=== PATIENT | female | born 1955 | race Caucasian/White ===

== ENCOUNTER 2021-12-23 09:09 | Inpatient (IN) | payer OTHER ==
[~2021-12-23] VITALS: Ht 154.9 cm; Wt 63.5 kg
[2021-12-23 10:43] LABS: BG BASE EXCESS -1.3 mmol/L (-2.0-2.0); BG CARBOXYHEMOGLOBIN 0.5 % (0.5-1.5); BG DEOXYHEMOGLOBIN 2.5 % (0.0-5.0); BG FRACTION INSPIRED OXYGEN 3; BG METHEMOGLOBIN 0.3 % (0.0-1.5); BG OXYGEN SATURATION 97.5 % (92.0-98.5); BG OXYHEMOGLOBIN 96.7 % (94.0-97.0); BG PCO2 36.5 mmHg (35.0-45.0); BG PH 7.417 (7.350-7.450); BG PO2 107.9 mmHg (75.0-100.0); BG SAMPLE SITE LEFT RADIAL; BG TOTAL HEMOGLOBIN 9.1 g/dL (12.0-18.0); BG VENT MODE NASAL CANNULA
[2021-12-23 11:24] LABS: BASOPHILS % 1.2 % (0.0-2.0); EOSINOPHILS % 0.5 % (0.0-5.0); HEMATOCRIT. 25.5 % (36.0-48.0); LYMPHOCYTES % 11.6 % (20.0-50.0); MEAN CORPUSCULAR HEMOGLOBIN 28.1 pg (28.0-32.0); MEAN CORPUSCULAR VOLUME 89.8 fL (81.0-99.0); MEAN PLATELET VOLUME 9.3 fl (7.4-10.4); MONOCYTES % 5.1 % (2.0-8.0); NEUTROPHILS % 81.6 % (40.0-76.0); PLATELET 280 x1000/uL (130-400); RED BLOOD CELL COUNT 2.84 mill/uL (4.2-5.4); RED CELL DISTRIBUTION WIDTH 18.6 % (11.6-14.6)
[2021-12-23 11:43] LABS: CLARITY URINE CLEAR (CLEAR); COLOR URINE YELLOW (YELLOW); KETONES URINE NEGATIVE (NEGATIVE); LEUKOCYTE ESTERASE URINE 3+ (NEGATIVE); NITRITE URINE NEGATIVE (NEGATIVE); OCCULT BLOOD URINE TRACE (NEGATIVE); PROTEIN URINE 2+ (NEGATIVE); SPECIFIC GRAVITY URINE 1.011 (1.005-1.030); UROBILINOGEN URINE 0.2 E.U./dL (0.2-1.0)
[2021-12-23 11:48] LABS: CHLORIDE 106 mEq/L (98-107)
[2021-12-23 11:51] LABS: PROTHROMBIN TIME 11.2 sec (9.6-11.0)
[2021-12-23 20:45] VITALS: BP 152/82
[2021-12-23] MEDS ORDERED: CLONIDINE 0.1MG TABLET PO PRN (23:15)
[2021-12-23] MEDS ORDERED: ACETAMINOPHEN 325MG TABLET PO PRN (23:15)
[2021-12-23] MEDS ORDERED: HYDROCODONE/ACETAMINOPHEN 5/325MG TABLET PO PRN (23:15)
[2021-12-23] MEDS ORDERED: DEXTROSE 50% WATER 50ML SYRINGE IV PRN (23:15)
[2021-12-23] MEDS ORDERED: IPRATROPIUM/ALBUTEROL 0.5-3(2.5)MG/3ML NEB HHN PRN (23:15)
[2021-12-23] MEDS ORDERED: ONDANSETRON HCL 4MG/2ML INJ IV PRN (23:15)
[2021-12-23] MEDS ORDERED: CEFTRIAXONE 1 G PREMIX 50 ML IV SCH (23:15)
[2021-12-24] VITALS: BP 128/74
[2021-12-24] MEDS: CEFTRIAXONE 1,000 MG in DEXTROSE 5% WATER 50 ML IV SCH (01:23)
[2021-12-24] MEDS ORDERED: LISI2.5T47 MT (03:43)
[2021-12-24] MEDS ORDERED: INSLIS SUBCUT (03:43)
[2021-12-24] MEDS ORDERED: ATOR10TA69 MT (03:43)
[2021-12-24 04:00] VITALS: BP 121/72
[2021-12-24] MEDS: BLOOD SUGAR DIAGNOSTIC STRIP TEST SCH ×4 (06:53→21:22)
[2021-12-24] MEDS: FUROSEMIDE 40MG/4ML VIAL IVP SCH ×2 (06:53→18:16)
[2021-12-24 07:40] VITALS: BP 120/74
[2021-12-24] MEDS: LISINOPRIL 10MG TABLET PO SCH (08:30)
[2021-12-24] MEDS: ASPIRIN 81MG TABLET PO SCH (08:30)
[2021-12-24] MEDS: HEPARIN 5000 UNITS/ML VIAL SUBCUT SCH ×2 (08:31→21:22)
[2021-12-24] MEDS: INSULIN LISPRO 100 UNITS/ML SUBCUT SCH ×4 (08:37→21:23)
[2021-12-24 11:52] VITALS: BP 122/76
[2021-12-24 12:11] LABS: BASOPHILS % 1.2 % (0.0-2.0); EOSINOPHILS % 0.4 % (0.0-5.0); HEMATOCRIT. 27.7 % (36.0-48.0); HEMOGLOBIN. 8.7 g/dL (12.0-16.0); LYMPHOCYTES % 9.9 % (20.0-50.0); MEAN CORPUSCULAR HEMOGLOBIN 28.4 pg (28.0-32.0); MEAN CORPUSCULAR VOLUME 89.9 fL (81.0-99.0); MEAN PLATELET VOLUME 9.2 fl (7.4-10.4); MONOCYTES % 5.5 % (2.0-8.0); PLATELET 300 x1000/uL (130-400); RED BLOOD CELL COUNT 3.08 mill/uL (4.2-5.4); RED CELL DISTRIBUTION WIDTH 18.6 % (11.6-14.6)
[2021-12-24 12:47] LABS: CHLORIDE 106 mEq/L (98-107)
[2021-12-24 13:03] LABS: HDL CHOLESTEROL 42 mg/dL (40-59); LDL CHOLESTEROL 76 mg/dL (5-100); TOTAL IRON BINDING CAPACITY 182 ug/dL (250-450)
[2021-12-24 15:51] VITALS: BP 128/74
[2021-12-24] MEDS ORDERED: IOHEXOL-350 100 ML BOTTLE ONE (17:32)
[2021-12-24 20:00] VITALS: BP 130/75
[2021-12-25] VITALS: BP 125/69
[2021-12-25] MEDS: CEFTRIAXONE 1,000 MG in DEXTROSE 5% WATER 50 ML IV SCH (01:02)
[2021-12-25 04:00] VITALS: BP 130/70
[2021-12-25] MEDS: FUROSEMIDE 40MG/4ML VIAL IVP SCH (05:20)
[2021-12-25] MEDS: BLOOD SUGAR DIAGNOSTIC STRIP TEST SCH ×2 (06:55→12:20)
[2021-12-25] MEDS: INSULIN LISPRO 100 UNITS/ML SUBCUT SCH ×2 (07:50→12:50)
[2021-12-25 08:30] VITALS: BP 133/77
[2021-12-25] MEDS: LISINOPRIL 10MG TABLET PO SCH (09:50)
[2021-12-25] MEDS: ASPIRIN 81MG TABLET PO SCH (09:50)
[2021-12-25] MEDS: HEPARIN 5000 UNITS/ML VIAL SUBCUT SCH (09:51)
[2021-12-25 12:30] VITALS: BP 130/75
== END 2021-12-25 13:57 | disposition left against medical advice (07) | DRG 291 ==
LOC: ER 09:09 → EDBEDREQ 09:19 → EDBEDREQSVC 11:24 → 6WST 12:56 → UNDOADMIN 12:56 → EDBEDREQ 13:04 → ENRESERV 15:52 → CANRESERV 16:05 → ENRESERV 16:05 → 6WST 21:58
PROVIDERS: ADMIT Internal Medicine; ATTEND Internal Medicine
DX: I11.0 Hypertensive heart disease with heart failure (principal); I50.43 Acute on chronic combined systolic (congestive) and diastolic (congestive) heart failure; J96.01 Acute respiratory failure with hypoxia; N39.0 Urinary tract infection, site not specified; E78.5 Hyperlipidemia, unspecified; E11.51 Type 2 diabetes mellitus with diabetic peripheral angiopathy without gangrene; D64.9 Anemia, unspecified; E11.621 Type 2 diabetes mellitus with foot ulcer; I45.10 Unspecified right bundle-branch block; I34.0 Nonrheumatic mitral (valve) insufficiency; I25.2 Old myocardial infarction; Z20.822 Contact with and (suspected) exposure to COVID-19; Z89.412 Acquired absence of left great toe; Z79.4 Long term (current) use of insulin; Z53.29 Procedure and treatment not carried out because of patient's decision for other reasons
CPT/HCPCS: 36415; 36600; 71045; 71275; 80048; 80053; 80061; 81003; 82270; 82375; 82805; 82962; 83036; 83540; 83550; 83605; 83615; 83735; 83880; 84145; 84443; 84484; 85025; 85379; 87426; 87804; 93005; 93306; 93970; 99285; C9803; J0696; J1644; J1815; J1940; J7060; Q9967